=== PATIENT | male | born 2000 | race Caucasian/White ===

== ENCOUNTER 2020-10-18 04:35 | Emergency (ER) | payer SELFPAY ==
[~2020-10-18] VITALS: Ht 188 cm; Wt 74.8 kg
[2020-10-18 04:42] VITALS: BP 120/88
--- NOTE | 2020-10-18 04:42 | NUR ---
TO [facility] , GUILLERMO [facility] FOR PREBOOK
[2020-10-18 05:34] VITALS: BP 120/88
--- NOTE | 2020-10-18 06:00 | NUR ---
PATIENT LEFT WITHOUT BEING SEEN BY DR. BECKWITH. NO FURTHER CARE PROVIDED FOR PATIENT.
== END 2020-10-18 06:00 | disposition left against medical advice (07) ==
LOC: MED 04:35
DX: S01.21XA Laceration without foreign body of nose, initial encounter (principal); Z53.21 Procedure and treatment not carried out due to patient leaving prior to being seen by health care provider; X58.XXXA Exposure to other specified factors, initial encounter; Y93.89 Activity, other specified; Y92.89 Other specified places as the place of occurrence of the external cause; Y99.8 Other external cause status